=== PATIENT | female | born 1950 | race Caucasian/White ===

== ENCOUNTER 2018-01-10 19:15 | Observation (INO) ==
--- NOTE | 2018-01-10 20:07 | Emergency Department Report ---
General Adult HPI - General Chief complaint: Medical Emergency Stated complaint: diarrhea,nausea,possibly overheateded Time Seen by Provider: 01/10/18 20:07 Source: patient, family Mode of arrival: ambulatory Limitations: no limitations - History of Present Illness HPI narrative: Patient is a 67-year-old female presents emergency room for evaluation of nausea , possible dehydration. Patient is visiting from [facility] was here today for a track meet. Patient states she spent the entire day out of the heat, although was initiated most of the time. Patient developed some nausea and has had one episode of diarrhea, no emesis. Patient also states she's been mildly dizzy, decided to present to the ER for possible dehydration. Patient ambulates in without assistance, no acute distress vital signs are within defined limits. - Related Data Home Medications Medication Instructions Recorded Confirmed Levothyroxine Sodium 75 mcg PO DAILY 01/10/18 01/10/18 Allergies Allergy/AdvReac Type Severity Reaction Status Date / Time No Known Allergies Allergy Verified 01/10/18 20:05 Review of Systems Constitutional: Denies: fever, chills, weakness Eyes: Denies: eye pain, eye discharge, vision change ENT: Denies: throat pain, dental pain Cardiovascular: Denies: chest pain Respiratory: Denies: cough, dyspnea, wheezes Gastrointestinal: Reports: nausea. Denies: abdominal pain, vomiting Genitourinary: Denies: dysuria, frequency Neurological: Reports: vertigo. Denies: headache, weakness, numbness, paresthesias Psychiatric: Denies: anxiety, depression Endocrine: Denies: fatigue Hematological/Lymphatic: Denies: easy bleeding PFSH Medical History Updates: Hypothyroid - Social History Smoking status: Never smoker Substance use type: does not use Alcohol intake frequency: does not drink Physical Exam - General General appearance: alert, in no apparent distress - Eye Eye exam: Present: PERRL, EOMI - ENT ENT exam: Present: normal oropharynx, mucous membranes moist, TM's normal bilaterally - Neck Neck exam: Present: full ROM, trachea midline. Absent: tenderness - Chest Chest inspection: Present: symmetric chest wall rise. Absent: tenderness - Respiratory Respiratory exam: Present: normal lung sounds bilaterally. Absent: respiratory distress, wheezes, stridor - Cardiovascular Cardiovascular exam: Present: regular rate, normal rhythm, normal heart sounds - Abdominal Exam Abdominal exam: Present: soft, normal bowel sounds. Absent: distention, tenderness - Extremities Exam Extremities exam: Present: full ROM - Back Exam Back exam: Present: full ROM - Skin Skin exam: Present: warm, dry - Neurological Exam Neurological exam: Present: alert, oriented X3 - Psychiatric Psychiatric exam: Present: normal affect, normal mood Course Vital Signs Temperature 97.6 F 01/10/18 19:17 Pulse Rate 74 01/10/18 19:17 Respiratory Rate 14 01/10/18 19:17 Blood Pressure 140/60 H 01/10/18 19:17 Pulse Oximetry 97 01/10/18 19:17 Temperature 97.6 F 01/10/18 19:17 Pulse Rate 74 01/10/18 19:17 Respiratory Rate 14 01/10/18 19:17 Blood Pressure 140/60 H 01/10/18 19:17 Pulse Oximetry 97 01/10/18 19:17 Medical Decision Making - [facility] Narrative Medical decision making narrative: Patient hyponatremic at sodium 120 on blood drawn before IV placed. Patient's symptoms improved with Compazine, did discuss with Dr. Westbrook, telehospitalist. He will admit observation status. - Medical Records Medical records reviewed: Yes: I reviewed the patient's medical records. - Lab Data Lab results reviewed: Yes: I reviewed the patient's lab results. Result diagrams: 01/10/18 20:48 01/10/18 20:48 Disposition Clinical Impression: Hyponatremia Disposition: 02 To [facility] Condition: Stable - Seen By: physician
[2018-01-10] MEDS ORDERED: NS 1,000 ML IV ONE (20:11)
[2018-01-10] MEDS ORDERED: PROCHLORPERAZINE 10 MG/2 ML INJECTION IVP ONE (20:11)
--- OUTSIDE RECORDS SUMMARY | 2018-01-10 20:27 | External Medical Summary | Continuity of Care Document ---
:1950 Author Organization [facility] Address [address] [place] [address] Care Team Providers Name Role Phone Juanita Weaver OPERATIONAL COMMUNICATION CHIEF Unavailable Unavailable Insurance Providers Payer Name Policy Number Subscriber Name Relationship Medicare [id number] Erika Davis Self / Same As Patient [employer] - Plan 65 [id number] Erika Davis Self / Same As Patient Problems No problem information available. Medications Current Home Medications Medication Dose Units Route Directions Days/Qty Instructions Start Date Levothyroxine Sodium 75 75 Mcg Oral Daily 03/24/14 Mcg Flaxseed Oil 1,000 Mg 1,000 Mg Oral Daily 04/29/16 Fish Oil/Stanton-3 Fatty 1 Cap Oral Daily 04/29/16 Acids 360 Mg-1,200 Mg Biotin 5 Mg 5 Mg Oral Daily 04/29/16 Beta-Carotene(A) W-C 1 Tab Oral Daily 04/29/16 & E/Min 1,000-60-2 Cholecalciferol 1,000 1,000 Unit Oral Daily 04/29/16 Unit Social History Social History Problem Response Recorded Date/Time History of Street Drugs? No 07/11/2010 7:35am Hx Alcohol Use Yes 03/24/2014 2:10pm Alcohol Frequency/Consumption Socail 03/24/2014 2:10pm Query Response Start Date Stop Date Smoking status: Never smoker Hospital Discharge Instructions Current inpatient/outpatient. Discharge instructions are currently unavailable. Plan of Care Prescriptions Follow-up Orders Mammo Screen-Shyam w/Saqib Functional Status No functional status results. Allergies, Adverse Reactions, Alerts Allergen Type Severity Reaction Status Last Updated No Known Drug Allergies Allergy Unknown Active 03/24/14 Immunizations No immunization records. Vital Signs Acute Vital Signs Vital Response Date/Time Height 5 ft 4 in Weight 134 lb Body Mass Index 23.0 kg/m^2 Ambulatory Vital Signs Vital Response Date/Time Height 5 ft 4 in 04/28/2017 1:01pm Weight 134 lbs 04/28/2017 1:01pm Temperature, Oral 97.7 degrees F 04/28/2017 1:01pm Blood Pressure, Sitting, Right Arm 110/68 mm Hg 04/28/2017 1:01pm Pulse Rate 64 bpm 04/28/2017 1:01pm Respiration Rate 20 bpm 04/28/2017 1:01pm Body Surface Area 1.66 m2 04/28/2017 1:01pm Body Mass Index 23.0 kg/m2 04/28/2017 1:01pm Pulse Oximetry Pulse Oximetry 04/28/2017 1:01pm Results No known relevant diagnostic tests, laboratory data and/or discharge summary. Procedures Procedure Status Date Provider(s) Digital screening mammography of both breasts Active 05/07/16 Mayra Sousa APRN Encounters Encounter Location Arrival/Admit Date Discharge/Depart Date Attending Provider Office Visit [facility] 04/28/17 1:00pm Wendy Sousa APRN Registered [facility] 04/28/17 1:00pm [facility] Mayra Loera APRN Departed Clinic [facility] 04/28/17 12:52pm 04/28/17 11:59pm Padmini Sousa APRN Recent Diagnosis Family history of ovarian cancer
[2018-01-10] MEDS: SALINE FLUSH 10ml SYRINGE IVF PRN (21:26)
[2018-01-10 22:17] VITALS: BMI 24.0
[2018-01-10] MEDS ORDERED: ONDANSETRON ODT 4 MG TABLET PO PRN (22:41)
[2018-01-10] MEDS ORDERED: ACETAMINOPHEN 500 MG TABLET PO PRN (22:41)
--- NOTE | 2018-01-10 22:48 | History & Physical Report ---
History of Present Illness Date: 01/10/18 Chief complaint: weakness nausea HPI: Very pleasant 67 y/o female in [employer] [place] wi[place] nasue and weakness. She went to her granddaughter's state track meet today, was in the heat and drank 6 20 oz bottles of water through the day. She still feels/felt dehydrated, had nausea later in the afternoon but no vomiting, did have 1 episode of diarrhea later on. She denies fever, headache, abd pain or dysuria, did urinate 2 x today. She denies edema, deneis hx CHF or diuretics. She only takes thyroid meds. She is feeling better now after compazine and IV fluids in ER Review of Systems All systems PM: 10-point ROS was reviewed, no additional remarkable complaints except Past Medical History Medical History Updates: Hypothyroid Surgical History: BSO prophylaxis since sis had ovarian CA. 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 incidental appy. cataracs Family History Updates: sis with ovarian ca Family History: As Above - Social History Smoking status: Never smoker Alcohol intake: current Alcohol intake frequency: a few times a month Current occupational status: retired Medications Home Medications Medication Instructions Recorded Confirmed Type Levothyroxine Sodium 75 mcg PO DAILY 01/10/18 01/10/18 History Allergies Allergy/AdvReac Type Severity Reaction Status Date / Time No Known Allergies Allergy Verified 01/10/18 20:05 Exam Vital Signs: Temperature 97.6 F 01/10/18 19:17 Pulse Rate 73 01/10/18 21:32 Respiratory Rate 16 01/10/18 21:32 Blood Pressure 132/62 01/10/18 21:32 Pulse Oximetry 99 01/10/18 21:32 Height/Weight/BMI: Height 1.63 m Weight 63.5 kg Body Mass Index 24.0 - Constitutional Present: no acute distress Comments: pleasant A &O x 3 lungs cta cv reg s m abd soft nt benign extr no edma neuro non focal Results - Labs CBC & Chem 7: 01/10/18 20:48 01/10/18 20:48 Assessment and Plan Assessment and Plan: 1. hypovolemic hyponatremia 2. dehydration 3. hypothyroid - NS recheck na tonight but would expect quick lowering today and likely usually normal so rapid correction may be expected expect home in am check TSH - Physician Narrative Narrative: Date: 01/10/18 Time: 2241 Hospital Course Summary Disclaimer: The visit summary below is not to be considered part of the above Progress Note.
[2018-01-10] MEDS: NS 1,000 ML IV SCH (22:52)
[2018-01-11] MEDS: NS 1,000 ML IV SCH (05:40)
--- NOTE | 2018-01-11 13:08 | History & Physical Report ---
History of Present Illness Date: 01/11/18 HPI: Pt reports she was doing fine until yesterday when she felt dehydrated at the track meet even though she had several bottles of water. Pt started having some nausea and overall didn't feel well so came into the hospital where she was found to have low sodium and admitted. Pt denies any previous such episodes. Denies any sodium abnormalities on previous labs but hasn't had any labs in at least 6 months. Pt's thyroid labs were wnls 1 year ago. Pt denies taking any meds other than her thyroid meds. Denies any other sx's before yesterday and only reports nausea and vague sx's yesterday. Very pleasant 67 y/o female in [employer] [place] wi[place] nasue and weakness. She went to her granddaughter's state track meet today, was in the heat and drank 6 20 oz bottles of water through the day. She still feels/felt dehydrated, had nausea later in the afternoon but no vomiting, did have 1 episode of diarrhea later on. She denies fever, headache, abd pain or dysuria, did urinate 2 x today. She denies edema, deneis hx CHF or diuretics. She only takes thyroid meds. She is feeling better now after compazine and IV fluids in ER Review of Systems Review of systems: 10 point ROS negative other than what is noted in HPI. Past Medical History Medical History Updates: Hypothyroid Surgical History: BSO prophylaxis since sis had ovarian CA. 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 incidental appy. cataracs Family History: As Above - Social History Smoking status: Never smoker Medications Home Medications Medication Instructions Recorded Confirmed Type Levothyroxine Sodium 75 mcg PO DAILY 01/10/18 01/10/18 History Allergies Allergy/AdvReac Type Severity Reaction Status Date / Time No Known Allergies Allergy Verified 01/10/18 20:05 Exam Vital Signs: Temperature 96.8 F 01/11/18 07:12 Pulse Rate 76 01/11/18 07:12 Respiratory Rate 16 01/11/18 07:12 Blood Pressure 130/71 01/11/18 07:12 Pulse Oximetry 98 01/11/18 07:12 Height/Weight/BMI: Height 5 ft 4 in Weight 59.1 kg Body Mass Index 24.0 - Constitutional Present: no acute distress - Routine HEENT Exam Head: Present: normocephalic, atraumatic Eye: Present: EOMI ENT: Present: mucous membranes moist - Routine Respiratory Exam Present: CTA bilaterally. Absent: rales, wheezes - Routine Cardiovascular Exam Present: RRR, no murmur - Routine Abdominal Exam Present: soft, non distended, non tender - Routine Extremities Exam Present: no edema. Absent: cyanosis, clubbing - Routine Skin Exam Present: intact, dry. Absent: erythema - Routine Neurological Exam Present: alert, oriented X3 - Routine Psychiatric Exam Present: normal affect, normal thought process Results - Labs CBC & Chem 7: 01/10/18 20:48 01/11/18 08:22 Assessment and Plan Assessment and Plan: Hypovolemic Hyponatremia -Unable to differentiate acute vs. chronic -Pt overcorrected to 137 after IV fluids from overnight -Will give desmopressin and D5 to bring it down to 128-129 Hypothyroid -Cont. home meds, TSH wnls Ppx -SCDs - Physician Narrative Narrative: Date: 01/11/18 Time: 1205 Hospital Course Summary Disclaimer: The visit summary below is not to be considered part of the above Progress Note. Hospital Course: 01/11/18 Pt likely has hypovolemic hyponatremia and thus corrected rapidly with overnight NS administration. Pt far exceeded 8-9 correction limit of Na in 24 hours and thus could be at risk of ODS. It is unclear if hyponatremia is acute vs. chronic, although pt has possible inciting event yesterday, it is unclear why pt mostly had mild sx's if this was an acute change to 120. Pt reports no recent labs have been done and so will assume the possibility that this could be chronic and will bring Na down with desmopressin and D5. Monitor closely.
[2018-01-11] MEDS ORDERED: D5W 500 ML IV SCH ×2 (13:45→18:15)
[2018-01-11] MEDS: DESMOPRESSIN 4 MCG/ML IVP SCH ×2 (14:19→20:44)
[2018-01-11] MEDS: LEVOTHYROXINE 75 MCG TABLET PO SCH (14:51)
[2018-01-12] MEDS: SALINE FLUSH 10ml SYRINGE IVF PRN (02:07)
[2018-01-12] MEDS: DESMOPRESSIN 4 MCG/ML IVP SCH ×2 (02:08→08:26)
[2018-01-12] MEDS: LEVOTHYROXINE 75 MCG TABLET PO SCH (05:53)
[2018-01-12] MEDS ORDERED: NS 1,000 ML IV SCH (08:15)
[2018-01-12] MEDS ORDERED: NS 500 ML IV SCH ×2 (09:15)
[2018-01-12] MEDS: SODIUM CHLORIDE 3% 500 ML IV SCH ×2 (12:34→18:39)
[2018-01-13] MEDS: SODIUM CHLORIDE 3% 500 ML IV SCH ×3 (01:20→11:58)
[2018-01-13] MEDS: LEVOTHYROXINE 75 MCG TABLET PO SCH (05:51)
[2018-01-13 07:53] VITALS: BP 139/75; PULSE 70; RESP 16; TEMP 97.8; O2SAT 98
--- NOTE | 2018-01-13 13:58 | Discharge Summary ---
Discharge Information Date of admission: 01/10/18 21:41 Anticipated date of discharge: 01/13/18 Attending Physician: Lisa Fontanez MD Primary care physician: OTHER - Laboratory Labs: 01/13/18 12:56 History of Present Illness HPI: Pt reports she was doing fine until yesterday when she felt dehydrated at the track meet even though she had several bottles of water. Pt started having some nausea and overall didn't feel well so came into the hospital where she was found to have low sodium and admitted. Pt denies any previous such episodes. Denies any sodium abnormalities on previous labs but hasn't had any labs in at least 6 months. Pt's thyroid labs were wnls 1 year ago. Pt denies taking any meds other than her thyroid meds. Denies any other sx's before yesterday and only reports nausea and vague sx's yesterday. Very [place] 67 [facility] [place] [facility] [place] nas[place] and weakness. She went to her granddaughter's state track meet today, was in the heat and drank 6 20 oz bottles of water through the day. She still feels/felt dehydrated, had nausea later in the afternoon but no vomiting, did have 1 episode of diarrhea later on. She denies fever, headache, abd pain or dysuria, did urinate 2 x today. She denies edema, deneis hx CHF or diuretics. She only takes thyroid meds. She is feeling better now after compazine and IV fluids in ER Hospital Course This is a general summary of the patient's hospital course. For more details refer to the complete medical record. Hospital course: 01/11/18 Pt likely has hypovolemic hyponatremia and thus corrected rapidly with overnight NS administration. Pt far exceeded 8-9 correction limit of Na in 24 hours and thus could be at risk of ODS. It is unclear if hyponatremia is acute vs. chronic, although pt has possible inciting event yesterday, it is unclear why pt mostly had mild sx's if this was an acute change to 120. Pt reports no recent labs have been done and so will assume the possibility that this could be chronic and will bring Na down with desmopressin and D5. Monitor closely. Discharge Summary: Pt was admitted d/t mostly asymptomatic hyponatremia. The etiology was likely hypovolemic and thus pt corrected very rapidly with NS IV fluids administration by night admitting team. Because the chronicity of the hyponatremia was not known, the Na was re-lowered and was brought up much more slowly d/t risk of ODS. Na was lowered using D5 and desmopressin and than increased again by using hypertonic saline. Pt did well and was discharged with a Na level of 131 which had improved from a Na of 120 on admission. It was recommended to pt to f/u with pcp and get labs on Friday to monitor her Na level at that time. Pt denied any sx's throughout her hospital stay. TSH test was within normal limits. Discharge Plan - Med Rec/Dispo Truven Instructions: Hyponatremia (GEN) Additional Instructions: Diet: Regular Activity: As tolerated Signs and symptoms to monitor: If any confusion, drowsiness or mental status change happens please seek medical care. Prescriptions: Continue Levothyroxine Sodium 75 mcg PO DAILY - Disposition 01 Discharged Home, Self-Care - Dismissal Complete Discharge Instructions are:: Complete
== END 2018-01-13 14:40 | disposition home or self-care (01) ==
LOC: ED 19:15 → EDHOLD 19:15 → MED 22:10
PROVIDERS: ADMIT Pediatrics; ATTEND Internal Medicine